=== PATIENT | female | born 1965 | race Caucasian/White ===

== ENCOUNTER 2016-07-29 16:37 | Emergency (ER) | payer BC ==
--- NOTE | 2016-08-04 17:58 | ER ---
ADMIT: 07/29/2016 RM/LOC: ER [facility] MR#: [id number] [id number] ELSIE [address] [place] [address] Emergency Room Report SEX: F AGE: 50 : 1965 DATE: 07/29/2016 ADDENDUM: This patient comes into the ER because she has had a bladder infection. She was put on Cipro, it makes her sick, she cannot keep it down. She is vomiting and feels like she is getting worse. She has pain in her low back and she denies any fevers. On physical exam, her abdomen is soft. She is slightly tender above the pubic symphysis and tender in both flank areas. CBC, BMP were normal. IV of normal saline was started. She was given a liter of bolus, Toradol, and morphine, which she felt better. She was given Levaquin 750 mg IV, and I wrote a prescription for Levaquin. She is to follow up with her primary. Return to the ER for not keeping fluids down. Please see my T-sheet. RIC Benz / Charan Vanegas MD / claritza JOB #: [id number] CC: Charan Vanegas MD, Attending Physician Cal Peres MD, Family Physician
== END 2016-07-29 20:42 | disposition home or self-care (01) ==
LOC: ER 16:37
DX: N39.0 Urinary tract infection, site not specified (principal); Z90.49 Acquired absence of other specified parts of digestive tract; Z79.899 Other long term (current) drug therapy